=== PATIENT | female | born 1940 | race Caucasian/White ===

== ENCOUNTER 2017-03-23 07:55 | Emergency (ER) | payer MEDICAID, OTHER ==
[~2017-03-23] VITALS: Ht 154.9 cm; Wt 77.1 kg
[~2017-03-23 07:55] MED LIST: ASPI81TA2 PO; ATOR40TA68 PO; ENAL20TA PO; FAMO-129 PO; FAMO20TA8 PO; HYDR25TA4 PO; LEVO50TA77 PO; METO-442 PO; NOR10 PO; POLY17PO4 PO
[2017-03-23 08:08] VITALS: BP_SYST 164
[2017-03-23] MEDS ORDERED: KETOROLAC TROMETHAMINE 30 MG VIAL IM ONE (09:45)
[2017-03-23 10:08] VITALS: BP_SYST 162
== END 2017-03-23 10:08 | disposition home or self-care (01) ==
LOC: SED 07:55
DX: M25.562 Pain in left knee (principal); M25.552 Pain in left hip; W18.30XA Fall on same level, unspecified, initial encounter; K21.9 Gastro-esophageal reflux disease without esophagitis; I10 Essential (primary) hypertension; Z96.643 Presence of artificial hip joint, bilateral; Z96.652 Presence of left artificial knee joint; Y93.89 Activity, other specified; Y92.89 Other specified places as the place of occurrence of the external cause; Y99.8 Other external cause status
CPT/HCPCS: 73502; 73564; 96372; 99284; J1885

== ENCOUNTER 2019-07-29 07:51 | Emergency (ER) | payer OTHER ==
[~2019-07-29] VITALS: Ht 154.9 cm; Wt 74.8 kg
[~2019-07-29 07:51] MED LIST changes: +ASPI-1155 PO; -ASPI81TA2 PO; -LEVO50TA77 PO; +SYN50 PO
[2019-07-29] MEDS ORDERED: BUS5 PO (08:23)
[2019-07-29 08:24] VITALS: BP_SYST 167
--- NOTE | 2019-07-29 08:28 | NUR ---
PATIENT PRESENTS TO THE ER WITH TWO MONTH HX OF LEFT NARES EPISTAXIS; INTERMITTENT; CURRENTLY RESOLVED; NO TRAUMA, NO OTHER REMARKABLE S/S; PATIENT TO ER #7 AT 0815 AND ERMD EVALUATION AT 0820
[2019-07-29] MEDS ORDERED: PHENYLEPHRINE HCL 0.5% NASAL 15 ML NASPR NS PRN (08:30)
--- NOTE | 2019-07-29 08:30 | NUR ---
PT CAME TO ER WITH NOSBLEED FOR 1 HOUR THIS MORNING. PT NOSE NOT CURRENTLY BLEEDING. IN [facility] NO PAIN, AWAITING MD, NO S/S OF DISTRESS.
--- NOTE | 2019-07-29 08:40 | NUR ---
ER at bedside examining patient.
--- NOTE | 2019-07-29 09:00 | NUR ---
PT RESTING IN BED COMFORTABLY NO ACTIVE BLEEDING, NO S/S OF DISTRESS AT THIS TIME.
--- NOTE | 2019-07-29 09:45 | NUR ---
Patient given written and verbal discharge instructions and verbalizes understanding. ER MD discussed with patient the results and treatment provided. Patient in stable condition. ID arm band removed. Patient educated on pain management and to follow up with PMD. Pain Scale 0/10. Opportunity for questions provided and answered. Medication side effect fact sheet provided.
[2019-07-29 09:52] VITALS: BP_SYST 151
== END 2019-07-29 09:45 | disposition home or self-care (01) ==
LOC: SED 07:51
DX: R04.0 Epistaxis (principal); K21.9 Gastro-esophageal reflux disease without esophagitis; Z86.73 Personal history of transient ischemic attack (TIA), and cerebral infarction without residual deficits; Z79.899 Other long term (current) drug therapy; Z79.82 Long term (current) use of aspirin
CPT/HCPCS: 99281

== ENCOUNTER 2019-08-02 12:05 | Emergency (ER) | payer OTHER ==
[~2019-08-02] VITALS: Ht 157.5 cm; Wt 72.6 kg
[~2019-08-02 12:05] MED LIST changes: -ATOR40TA68 PO; +BUS5 PO; -FAMO-129 PO; -FAMO20TA8 PO; -METO-442 PO; -POLY17PO4 PO
[2019-08-02 12:25] VITALS: BP_SYST 143
--- NOTE | 2019-08-02 12:25 | NUR ---
Patient to ER bed 4 to gown for evaluation. Side rails up. Assumed care.
--- NOTE | 2019-08-02 12:28 | NUR ---
Patient arrived via POV, AAOx4, and ambulatory with steady gait, grasping at left arm and hand. Patient states she was at [employer] and walking out and had a mechanical fall from step. Patient states she braced her fall with her left arm. Deformity noted to left pinky finger. +2 pulses noted to radial. Cap refill <3 seconds. Patient notes pain to left wrist at radius. Patient is having pain above and below elbow, notes it as tenderness. No bruising or deformity noted. Patient also notes pain to anterior shoulder. Patient states she is able to move shoulder, in a shrugging motion. Patient is able to straighten arm with increased pain. Patient states she hit her face at the end of the fall, mild soft tissue swelling to left jaw just in front of the ear. Patient states to the lateral side of left hand near pinky there is a small skin tear with bleeding controlled. 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 Patient is able to ambulate but with pain with weightbearing. Will continue to follow up and monitor. made aware.
--- NOTE | 2019-08-02 12:30 | NUR ---
ER at bedside examining patient.
[2019-08-02 13:50] VITALS: BP_SYST 141
--- NOTE | 2019-08-02 13:50 | NUR ---
Patient given written and verbal discharge instructions and verbalizes understanding. ER MD discussed with patient the results and treatment provided. Patient in stable condition. ID arm band removed. Rx of Ibuprofen given. Patient educated on pain management and to follow up with PMD. Pain Scale 0/10. Opportunity for questions provided and answered. Medication side effect fact sheet provided.
== END 2019-08-02 13:50 | disposition home or self-care (01) ==
LOC: SED 12:05
DX: S63.92XA Sprain of unspecified part of left wrist and hand, initial encounter (principal); S43.402A Unspecified sprain of left shoulder joint, initial encounter; S83.92XA Sprain of unspecified site of left knee, initial encounter; K21.9 Gastro-esophageal reflux disease without esophagitis; I10 Essential (primary) hypertension; Z86.73 Personal history of transient ischemic attack (TIA), and cerebral infarction without residual deficits; Z79.899 Other long term (current) drug therapy; Z79.82 Long term (current) use of aspirin; W01.0XXA Fall on same level from slipping, tripping and stumbling without subsequent striking against object, initial encounter; Y93.89 Activity, other specified; Y92.22 Religious institution as the place of occurrence of the external cause; Y99.8 Other external cause status
CPT/HCPCS: 73030; 73564; 99284

== ENCOUNTER 2023-06-08 14:50 | Emergency (ER) | payer OTHER ==
[~2023-06-08] VITALS: Ht 154.9 cm; Wt 72.6 kg
[~2023-06-08 14:50] MED LIST changes: +ENAL-79 PO; -ENAL20TA PO
[2023-06-08 14:55] VITALS: BP_SYST 129; PULSE 92; RESP 19; TEMP 97.9; O2SAT 99
[2023-06-08] MEDS ORDERED: IPRATROPIUM/ALBUTEROL SULFATE 3 ML AMPUL.NEB (DUONEB) INH ONE (15:15)
[2023-06-08 15:26] VITALS: O2SAT 96
[2023-06-08 15:36] LABS: BASOPHILS # (AUTO) 0.1 K/uL (0.0-0.2); EOSINOPHILS # (AUTO) 0.1 K/uL (0.0-0.4); LYMPHOCYTES # (AUTO) 1.9 K/uL (1.0-5.5); MEAN CORPUSCULAR HGB CONC 35 % (32-36); MONOCYTES # (AUTO) 0.4 K/uL (0.0-1.0); MONOCYTES % (AUTO) 5.8 % (1.7-9.3); NEUTROPHILS # (AUTO) 5.3 K/uL (1.8-7.7); PLATELET COUNT (AUTO) 152 K/uL (130-430); WHITE BLOOD COUNT (AUTO) 7.8 K/uL (4.8-10.8)
[2023-06-08 15:39] LABS: ANION GAP 11 (5-15); CALCIUM 9.2 mg/dL (8.4-11.0); CARBON DIOXIDE 22 mmol/L (23-29); CHLORIDE 100 mmol/L (98-107); CREATININE 1.58 mg/dL (0.55-1.30); GLUCOSE 241 mg/dL (74-106); SODIUM SERUM 133 mmol/L (136-145); UREA NITROGEN, BLOOD 27 mg/dL (8-21)
[2023-06-08 15:48] LABS: BASOPHILS % (AUTO) 0.8 % (0.0-2.0); EOSINOPHILS % (AUTO) 0.9 % (0.0-4.0); HEMATOCRIT 38.4 % (36-48); HEMOGLOBIN 13.2 g/dL (12.0-16.0); LYMPHOCYTES % (AUTO) 24.3 % (20.5-51.5); MEAN CORPUSCULAR HEMOGLOBIN 34 pg (27-31); MEAN CORPUSCULAR VOLUME 99 fL (79.0-98.0); NEUTROPHILS % (AUTO) 68.2 % (40.0-70.0); RED BLOOD CELL COUNT(AUTO) 3.86 MIL/uL (4.2-6.2); RED CELL DISTRIBUTION WIDTH 14.7 % (9.0-15.0)
[2023-06-08 15:51] LABS: INFLUENZA TYPE A Negative (NEGATIVE); INFLUENZA TYPE B NEGATIVE (NEGATIVE)
[2023-06-08] MEDS ORDERED: METH-776 PO ×2 (16:06→16:17)
[2023-06-08] MEDS ORDERED: ALBMDI INH ×2 (16:06→16:17)
== END 2023-06-08 16:25 | disposition home or self-care (01) ==
LOC: SED 14:50
DX: J45.909 Unspecified asthma, uncomplicated (principal); R05.9 Cough, unspecified; K21.9 Gastro-esophageal reflux disease without esophagitis; I10 Essential (primary) hypertension; Z79.899 Other long term (current) drug therapy; Z20.822 Contact with and (suspected) exposure to COVID-19
CPT/HCPCS: 36415; 71045; 80048; 85025; 94664; 94760; 99284

== ENCOUNTER 2024-02-07 20:20 | Inpatient (IN) | payer OTHER ==
[~2024-02-07] VITALS: Ht 154.9 cm; Wt 72.6 kg
[~2024-02-07 20:20] MED LIST changes: +ALBMDI INH; +METH-776 PO
[2024-02-07 20:31] VITALS: BP_SYST 186; PULSE 100; RESP 18; TEMP 99; O2SAT 96
[2024-02-07 22:13] LABS: INFLUENZA TYPE A Negative (NEGATIVE); INFLUENZA TYPE B NEGATIVE (NEGATIVE)
[2024-02-07 22:15] LABS: COVID19 ANTIGEN SOFIA FIA POSITIVE (NEGATIVE)
[2024-02-07] MEDS ORDERED: ENAL10TA75 PO (22:34)
[2024-02-07] MEDS ORDERED: LEVO50CA4 (22:34)
[2024-02-07] MEDS ORDERED: DILT60TA3 PO (22:34)
[2024-02-07] MEDS ORDERED: HYDR-2923 PO (22:34)
[2024-02-07] MEDS ORDERED: ATOR40TA68 PO (22:34)
[2024-02-07] MEDS ORDERED: PRO40 PO (23:22)
[2024-02-07] MEDS ORDERED: TACR1CAP2 PO (23:22)
[2024-02-07] MEDS ORDERED: CEL250 PO (23:22)
[2024-02-07] MEDS ORDERED: DICY-14 PO (23:22)
[2024-02-07] MEDS: ACETAMINOPHEN 500 MG TABLET PO ONE (23:58)
[2024-02-07] MEDS: KETOROLAC TROMETHAMINE 30 MG VIAL IM ONE (23:59)
[2024-02-08] VITALS (10 sets, daily range): BP systolic 122–158; PULSE 60–73; RESP 15–20; TEMP 96.8–98; O2SAT 92–99
[2024-02-08 00:23] LABS: BASOPHILS # (AUTO) 0.1 K/uL (0.0-0.2); BASOPHILS % (AUTO) 0.8 % (0.0-2.0); EOSINOPHILS % (AUTO) 0.4 % (0.0-4.0); HEMATOCRIT 33.6 % (36-48); HEMOGLOBIN 11.8 g/dL (12.0-16.0); LYMPHOCYTES # (AUTO) 0.5 K/uL (1.0-5.5); LYMPHOCYTES % (AUTO) 7.7 % (20.5-51.5); MEAN CORPUSCULAR HEMOGLOBIN 35 pg (27-31); MEAN CORPUSCULAR HGB CONC 35 % (32-36); MEAN CORPUSCULAR VOLUME 98 fL (79.0-98.0); MONOCYTES # (AUTO) 1.5 K/uL (0.0-1.0); MONOCYTES % (AUTO) 22.1 % (1.7-9.3); NEUTROPHILS # (AUTO) 4.6 K/uL (1.8-7.7); PLATELET COUNT (AUTO) 87 K/uL (130-430); RED BLOOD CELL COUNT(AUTO) 3.42 MIL/uL (4.2-6.2); RED CELL DISTRIBUTION WIDTH 15.3 % (9.0-15.0); WHITE BLOOD COUNT (AUTO) 6.7 K/uL (4.8-10.8)
[2024-02-08 00:34] LABS: ALANINE AMINOTRANSFERASE 45 U/L (12-78); ALBUMIN 3.6 g/dL (3.4-4.8); ANION GAP 12 (5-15); ASPARTATE AMINOTRANSFERASE 75 U/L (10-37); CALCIUM 9.6 mg/dL (8.4-11.0); CARBON DIOXIDE 22 mmol/L (23-29); CHLORIDE 102 mmol/L (98-107); CREATININE 1.37 mg/dL (0.55-1.30); GLUCOSE 90 mg/dL (74-106); POTASSIUM 3.9 mmol/L (3.5-5.1); SODIUM SERUM 136 mmol/L (136-145); TOTAL PROTEIN, SERUM 7.4 g/dL (6.4-8.3); UREA NITROGEN, BLOOD 20 mg/dL (8-21)
[2024-02-08] MEDS: ASPIRIN 81 MG TAB.CHEW PO ONE (01:16)
[2024-02-08] MEDS: DEXAMETHASONE SOD PHOSPHATE 4 MG/ML VIAL IVP ONE (02:28)
[2024-02-08] MEDS ORDERED: IPRATROPIUM BROM 0.5 MG/2.5 ML VIAL.NEB (ATROVENT) INH PRN (08:30)
[2024-02-08] MEDS ORDERED: ALBUTEROL SULFATE 0.083% 2.5 MG/3 ML VIAL.NEB INH PRN (08:30)
[2024-02-08] MEDS ORDERED: ONDANSETRON HCL 4 MG/2 ML VIAL IVP PRN (08:30)
[2024-02-08] MEDS ORDERED: LORazepam 2 MG/ML VIAL IVP PRN (08:30)
[2024-02-08] MEDS ORDERED: HYDROcodone/ACETAMIN 5-325 MG TAB (NORCO/ VICODIN) PO PRN (08:30)
[2024-02-08] MEDS ORDERED: NALOXONE HCL 0.4 MG/ML AMP (NARCAN) IVP PRN ×2 (08:30)
[2024-02-08 10:39] LABS: ANION GAP 10 (5-15); CARBON DIOXIDE 25 mmol/L (23-29); CHLORIDE 102 mmol/L (98-107); CREATININE 1.71 mg/dL (0.55-1.30); GLUCOSE 193 mg/dL (74-106); SODIUM SERUM 137 mmol/L (136-145); UREA NITROGEN, BLOOD 27 mg/dL (8-21)
[2024-02-08] MEDS: DEXAMETHASONE SOD PHOSPHATE 10 MG/ML VIAL IVP SCH (10:39)
[2024-02-08] MEDS: busPIRone HCL 5 MG TABLET PO SCH (10:40)
[2024-02-08] MEDS: ASPIRIN 81 MG TAB.CHEW PO SCH (10:40)
[2024-02-08 10:41] LABS: BASOPHILS % (AUTO) 0.4 % (0.0-2.0); HEMATOCRIT 34.4 % (36-48); HEMOGLOBIN 11.7 g/dL (12.0-16.0); LYMPHOCYTES # (AUTO) 0.5 K/uL (1.0-5.5); LYMPHOCYTES % (AUTO) 17.9 % (20.5-51.5); MEAN CORPUSCULAR HEMOGLOBIN 34 pg (27-31); MEAN CORPUSCULAR HGB CONC 34 % (32-36); MEAN CORPUSCULAR VOLUME 99 fL (79.0-98.0); MONOCYTES # (AUTO) 0.1 K/uL (0.0-1.0); NEUTROPHILS # (AUTO) 2.3 K/uL (1.8-7.7); NEUTROPHILS % (AUTO) 78.7 % (40.0-70.0); RED BLOOD CELL COUNT(AUTO) 3.48 MIL/uL (4.2-6.2); RED CELL DISTRIBUTION WIDTH 15.1 % (9.0-15.0)
[2024-02-08] MEDS: amLODIPine BESYLATE 10 MG TABLET PO SCH (10:41)
[2024-02-08] MEDS: HYDROCHLOROTHIAZIDE 25 MG TABLET (HCTZ) PO SCH (10:42)
[2024-02-08 11:04] LABS: WHITE BLOOD COUNT (AUTO) 2.9 K/uL (4.8-10.8)
[2024-02-08] MEDS: hydrALAZINE HCL 10 MG TABLET PO SCH (11:28)
[2024-02-08] MEDS: cefTRIAXone 1 GM IVPB PREMIX 50 ML IV SCH (11:30)
[2024-02-08] MEDS: AZITHROMYCIN 500 MG in NS 250 ML IV SCH (11:30)
[2024-02-08] MEDS ORDERED: hydrALAZINE HCL 10 MG TABLET PO PRN (12:15)
[2024-02-08 13:03] LABS: PLATELET COUNT (AUTO) 73 K/uL (130-430)
[2024-02-08] MEDS ORDERED: DILTIAZEM HCL 60 MG TABLET PO SCH (14:00)
[2024-02-08] MEDS: NORMAL SALINE 5 ML DISP.SYRIN IVF SCH (14:58)
[2024-02-08] MEDS: hydrALAZINE HCL 25 MG TABLET PO SCH (14:58)
[2024-02-08] MEDS: ATORVASTATIN 20 MG TABLET PO SCH (21:00)
[2024-02-08] MEDS ORDERED: lisinopriL 20 MG TABLET PO SCH (21:00)
[2024-02-09 06:00] VITALS: BP_SYST 152; PULSE 68; RESP 20; TEMP 97.2; O2SAT 98
[2024-02-09] MEDS: LEVOTHYROXINE SODIUM 0.05 MG TABLET PO SCH (06:42)
[2024-02-09 08:00] VITALS: O2SAT 98
[2024-02-09 08:01] LABS: ANION GAP 12 (5-15); BASOPHILS % (AUTO) 0.1 % (0.0-2.0); CALCIUM 8.9 mg/dL (8.4-11.0); CARBON DIOXIDE 21 mmol/L (23-29); CHLORIDE 103 mmol/L (98-107); CREATININE 1.65 mg/dL (0.55-1.30); GLUCOSE 127 mg/dL (74-106); HEMOGLOBIN 11.5 g/dL (12.0-16.0); LYMPHOCYTES # (AUTO) 0.9 K/uL (1.0-5.5); LYMPHOCYTES % (AUTO) 6.3 % (20.5-51.5); MEAN CORPUSCULAR HEMOGLOBIN 34 pg (27-31); MEAN CORPUSCULAR HGB CONC 34 % (32-36); MEAN CORPUSCULAR VOLUME 99 fL (79.0-98.0); MONOCYTES # (AUTO) 0.9 K/uL (0.0-1.0); MONOCYTES % (AUTO) 6.3 % (1.7-9.3); NEUTROPHILS % (AUTO) 87.3 % (40.0-70.0); PLATELET COUNT (AUTO) 80 K/uL (130-430); RED BLOOD CELL COUNT(AUTO) 3.45 MIL/uL (4.2-6.2); RED CELL DISTRIBUTION WIDTH 15.4 % (9.0-15.0); SODIUM SERUM 136 mmol/L (136-145); UREA NITROGEN, BLOOD 38 mg/dL (8-21)
[2024-02-09 11:20] LABS: WHITE BLOOD COUNT (AUTO) 14.9 K/uL (4.8-10.8)
[2024-02-09] MEDS: ACETAMINOPHEN 325 MG TABLET PO PRN (12:10)
[2024-02-09 12:46] VITALS: BP_SYST 129; PULSE 69; RESP 18; TEMP 97.1; O2SAT 98
[2024-02-09 16:05] VITALS: BP_SYST 107; PULSE 69; RESP 16; TEMP 97.3; O2SAT 99
[2024-02-09 20:00] VITALS: BP_SYST 138; PULSE 74; RESP 18; TEMP 97.7; O2SAT 99
[2024-02-10] VITALS: BP_SYST 143; PULSE 79; RESP 18; TEMP 97.6
[2024-02-10 07:00] VITALS: O2SAT 99
[2024-02-10 12:46] VITALS: BP_SYST 130; PULSE 77; RESP 16; TEMP 97.7; O2SAT 98
[2024-02-10] MEDS: HYDROcodone/ACETAMIN 10-325 MG TAB PO PRN (16:21)
[2024-02-10 20:00] VITALS: BP_SYST 138; PULSE 74; RESP 18; TEMP 97.7; O2SAT 98
[2024-02-11] VITALS (8 sets, daily range): BP systolic 122–182; PULSE 72–98; RESP 16–22; TEMP 97.6–98.5; O2SAT 98–99
[2024-02-11 07:16] LABS: HEMATOCRIT 34.3 % (36-48); HEMOGLOBIN 11.7 g/dL (12.0-16.0); LYMPHOCYTES # (AUTO) 1.5 K/uL (1.0-5.5); LYMPHOCYTES % (AUTO) 7.6 % (20.5-51.5); MEAN CORPUSCULAR HEMOGLOBIN 33 pg (27-31); MEAN CORPUSCULAR HGB CONC 34 % (32-36); MEAN CORPUSCULAR VOLUME 98 fL (79.0-98.0); MONOCYTES # (AUTO) 1.1 K/uL (0.0-1.0); MONOCYTES % (AUTO) 5.6 % (1.7-9.3); NEUTROPHILS % (AUTO) 86.8 % (40.0-70.0); PLATELET COUNT (AUTO) 102 K/uL (130-430); RED BLOOD CELL COUNT(AUTO) 3.49 MIL/uL (4.2-6.2); RED CELL DISTRIBUTION WIDTH 15.7 % (9.0-15.0); WHITE BLOOD COUNT (AUTO) 19.6 K/uL (4.8-10.8)
[2024-02-11 07:35] LABS: ANION GAP 8 (5-15); CALCIUM 8.7 mg/dL (8.4-11.0); CARBON DIOXIDE 24 mmol/L (23-29); CHLORIDE 104 mmol/L (98-107); CREATININE 1.46 mg/dL (0.55-1.30); GLUCOSE 106 mg/dL (74-106); SODIUM SERUM 136 mmol/L (136-145); UREA NITROGEN, BLOOD 45 mg/dL (8-21)
[2024-02-11 07:53] LABS: ERYTHROCYTE SEDIMENTATION RATE 23 MM/HR (0-20)
[2024-02-11] MEDS: METOPROLOL SUCCINATE 25 MG TAB.SR.24H (TOPROL XL) PO ONE (11:44)
[2024-02-11] MEDS: BUMEX 1 MG/4 ML VIAL IVP SCH (22:49)
[2024-02-12 01:30] VITALS: BP_SYST 160; PULSE 69; RESP 14; TEMP 96.7; O2SAT 97
[2024-02-12 08:39] LABS: ANION GAP 8 (5-15); CALCIUM 8.9 mg/dL (8.4-11.0); CARBON DIOXIDE 25 mmol/L (23-29); CHLORIDE 101 mmol/L (98-107); CREATININE 1.52 mg/dL (0.55-1.30); GLUCOSE 110 mg/dL (74-106); POTASSIUM 3.8 mmol/L (3.5-5.1); SODIUM SERUM 134 mmol/L (136-145); UREA NITROGEN, BLOOD 44 mg/dL (8-21)
[2024-02-12 08:59] VITALS: BP_SYST 132; PULSE 80; RESP 18; TEMP 97.1; O2SAT 95
[2024-02-12] MEDS: METOPROLOL SUCCINATE 25 MG TAB.SR.24H (TOPROL XL) PO SCH (09:02)
[2024-02-12 09:30] VITALS: O2SAT 95
[2024-02-12 10:51] LABS: BASOPHILS % (AUTO) 0.1 % (0.0-2.0); HEMOGLOBIN 12.3 g/dL (12.0-16.0); LYMPHOCYTES # (AUTO) 1.5 K/uL (1.0-5.5); LYMPHOCYTES % (AUTO) 11.5 % (20.5-51.5); MEAN CORPUSCULAR HEMOGLOBIN 33 pg (27-31); MEAN CORPUSCULAR HGB CONC 34 % (32-36); MEAN CORPUSCULAR VOLUME 98 fL (79.0-98.0); MONOCYTES # (AUTO) 1.3 K/uL (0.0-1.0); MONOCYTES % (AUTO) 9.5 % (1.7-9.3); NEUTROPHILS # (AUTO) 10.5 K/uL (1.8-7.7); NEUTROPHILS % (AUTO) 78.9 % (40.0-70.0); PLATELET COUNT (AUTO) 120 K/uL (130-430); RED BLOOD CELL COUNT(AUTO) 3.68 MIL/uL (4.2-6.2); RED CELL DISTRIBUTION WIDTH 15.2 % (9.0-15.0); WHITE BLOOD COUNT (AUTO) 13.3 K/uL (4.8-10.8)
[2024-02-12 12:54] VITALS: BP_SYST 137; PULSE 61; RESP 19; TEMP 97.7; O2SAT 97
[2024-02-12 16:44] VITALS: BP_SYST 147; PULSE 63; RESP 18; TEMP 97.4; O2SAT 96
[2024-02-12 20:03] VITALS: BP_SYST 146; PULSE 60; RESP 20; TEMP 97.6; O2SAT 97
[2024-02-13 01:26] VITALS: BP_SYST 131; PULSE 62; RESP 18; TEMP 98.6; O2SAT 99
[2024-02-13 06:43] LABS: HEMATOCRIT 35.9 % (36-48); HEMOGLOBIN 12.2 g/dL (12.0-16.0); LYMPHOCYTES # (AUTO) 1.4 K/uL (1.0-5.5); LYMPHOCYTES % (AUTO) 10.3 % (20.5-51.5); MEAN CORPUSCULAR HEMOGLOBIN 33 pg (27-31); MEAN CORPUSCULAR HGB CONC 34 % (32-36); MEAN CORPUSCULAR VOLUME 98 fL (79.0-98.0); MONOCYTES # (AUTO) 1.3 K/uL (0.0-1.0); MONOCYTES % (AUTO) 9.9 % (1.7-9.3); NEUTROPHILS # (AUTO) 10.8 K/uL (1.8-7.7); NEUTROPHILS % (AUTO) 79.8 % (40.0-70.0); PLATELET COUNT (AUTO) 125 K/uL (130-430); RED BLOOD CELL COUNT(AUTO) 3.67 MIL/uL (4.2-6.2); RED CELL DISTRIBUTION WIDTH 15.2 % (9.0-15.0); WHITE BLOOD COUNT (AUTO) 13.5 K/uL (4.8-10.8)
[2024-02-13 06:46] LABS: ANION GAP 10 (5-15); CALCIUM 8.9 mg/dL (8.4-11.0); CARBON DIOXIDE 26 mmol/L (23-29); CHLORIDE 100 mmol/L (98-107); CREATININE 1.67 mg/dL (0.55-1.30); GLUCOSE 114 mg/dL (74-106); SODIUM SERUM 136 mmol/L (136-145); UREA NITROGEN, BLOOD 55 mg/dL (8-21)
[2024-02-13 08:00] VITALS: BP_SYST 137; PULSE 65; RESP 15; TEMP 96.9; O2SAT 95
[2024-02-13 13:32] VITALS: BP_SYST 130; PULSE 57; RESP 20; TEMP 96.9; O2SAT 95
[2024-02-13 17:22] VITALS: BP_SYST 143; PULSE 62; RESP 19; TEMP 96.9; O2SAT 97
[2024-02-13] MEDS ORDERED: BUME0.5T6 PO (19:19)
[2024-02-13] MEDS ORDERED: HYDR25TA86 PO (19:19)
[2024-02-13] MEDS ORDERED: METO-304 PO (19:19)
[2024-02-13] MEDS ORDERED: PRED5TAB PO (19:22)
[2024-02-13 21:17] VITALS: BP_SYST 143; PULSE 61; RESP 20; TEMP 97; O2SAT 98
== END 2024-02-13 21:50 | disposition home health service (06) | DRG 177 ==
LOC: SED 20:20 → STU 02-08 02:49 → SMU 02-09 23:07
PROVIDERS: ADMIT Preventive Medicine Preventive Medicine/Occupational Environmental Medicine; ATTEND Specialist
DX: U07.1 COVID-19 (principal); J12.82 Pneumonia due to coronavirus disease 2019; J96.01 Acute respiratory failure with hypoxia; N17.9 Acute kidney failure, unspecified; I50.20 Unspecified systolic (congestive) heart failure; K21.9 Gastro-esophageal reflux disease without esophagitis; E78.5 Hyperlipidemia, unspecified; E03.9 Hypothyroidism, unspecified; Z96.653 Presence of artificial knee joint, bilateral; Z96.643 Presence of artificial hip joint, bilateral; J45.909 Unspecified asthma, uncomplicated; D69.6 Thrombocytopenia, unspecified; I11.0 Hypertensive heart disease with heart failure; I25.10 Atherosclerotic heart disease of native coronary artery without angina pectoris; D64.9 Anemia, unspecified; R73.9 Hyperglycemia, unspecified; I44.7 Left bundle-branch block, unspecified; I27.20 Pulmonary hypertension, unspecified; I34.0 Nonrheumatic mitral (valve) insufficiency
CPT/HCPCS: 36415; 71045; 76770; 80048; 80053; 83880; 84484; 85025; 85651; 86900; 86901; 93005; 93306; 94070; 94760; 97116-GP; 97530-GP; 99291; G0378; J0456; J0696; J1100; J1885; J3490; J7050